=== PATIENT | male | born 1950 | race Caucasian/White ===

== ENCOUNTER 2024-01-07 07:58 | Inpatient (IN) | payer OTHER ==
[~2024-01-07] VITALS: Ht 177.8 cm; Wt 102.0 kg
[2024-01-07] VITALS (19 sets, daily range): BP systolic 106–139; BP diastolic 56–84; PULSE 58–107; RESP 12–19; TEMP 98; O2SAT 96–100
--- NOTE | 2024-01-07 08:07 | ECG ---
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
--- NOTE | 2024-01-07 08:19 | ED.PDOC ---
HPI Comments 73y M who presents the ED for chief complaint of chest pain. Pt states he has been having chest pain for the past x 30 minutes. Pt states the pain is sharp in nature, constant, non-radiating, rating the pain 6/10, with no associated exacerbating or relieving factors. Pt has no associated symptoms but denies diaphoresis, palpitations, nausea, vomiting, headache, dizziness, cough, fever, chills, dysuria, or hematuria. Pt has noted history of HTN, HLD and ITP. Pt states he has history of heart event in past. Pt otherwise denies any other symptoms at this time. Chief Complaint: Chest Pain Time Seen by MD: 08:16 Reviewed Notes: Medications, Allergies Allergies: Coded Allergies: Doxycycline (Verified Allergy, Unknown, 01/07/24) Metformin (Verified Allergy, Unknown, 01/07/24) Pioglitazone (Verified Allergy, Unknown, 01/07/24) Uncoded Allergies: blood thinners (Allergy, Unknown, 01/07/24) Information Source: Patient Mode of Arrival: Ambulatory Brought in by: self Past Medical History PAST MEDICAL HISTORY: High Lipids, HTN Surgical History: Denies all surgeries Family History Family History: Reviewed,noncontributory to illness Social History Smoker: Non-Smoker Alcohol: Denies ETOH Use Drugs: Denies Drug Use Lives In: Home Constitutional: denies: chills, diaphoresis, fatigue, fever, malaise, sweats, weakness, others EENTM: denies: blurred vision, double vision, ear bleeding, ear discharge, ear drainage, ear pain, ear ringing, eye pain, eye redness, hearing loss, mouth pain, mouth swelling, nasal discharge, nose bleeding, nose congestion, nose pain, photophobia, tearing, throat pain, throat swelling, voice changes, others Respiratory: denies: cough, hemoptysis, orthopnea, SOB at rest, shortness of breath, SOB with excertion, stridor, wheezing, others Cardiovascular: reports: chest pain; denies: dizzy spells, diaphoresis, Dyspnea on exertion, edema, irregular heart beat, left arm pain, lightheadedness, palpitations, PND, syncope, others Gastrointestinal: denies: abdomen distended, abdominal pain, blood streaked bowels, constipated, diarrhea, dysphagia, difficulty swallowing, hematemesis, melena, nausea, poor appetite, poor fluid intake, rectal bleeding, rectal pain, vomiting, others Genitourinary: denies: burning, dysuria, flank pain, frequency, hematuria, incontinence, penile discharge, penile sore, pain, testicle pain, testicle swelling, urgency, others Neurological: denies: dizziness, fainting, headache, left sided numbness, left sided weakness, numbness, paresthesia, pre-existing deficit, right sided numbness, right sided weakness, seizure, speech problems, tingling, tremors, weakness, others Musculoskeletal: denies: back pain, gout, joint pain, joint swelling, muscle pain, muscle stiffness, neck pain, others Integumetry: denies: bruises, change in color, change in hair/nails, dryness, laceration, lesions, lumps, rash, wounds, others Allergic/Immunocompromised: denies: Difficulty Healing, Frequent Infections, Hives, Itching, others Hematologic/Lymphatic: denies: anemia, blood clots, easy bleeding, easy bruising, swollen glands, others Endocrine: denies: excessive hunger, excessive sweating, excessive thirst, excessive urination, flushing, intolerance to cold, intolerance to heat, unexplained weight gain, unexplained weight loss, others Psychiatric: denies: anxiety, bipolar disorder, depression, hopeless, panic disorder, schizophrenia, sleepless, suicidal, others All Other Systems: Reviewed and Negative Physical Exam General Appearance: Moderate Distress HEENT: Normal ENT Inspection, Pharynx Normal, TMs Normal Neck: Full Range of Motion, Non-Tender, Normal, Normal Inspection Respiratory: Chest Non-Tender, Lungs Clear, No Accessory Muscle Use, No Respiratory Distress, Normal Breath Sounds Cardiovascular: No Edema, No JVD, No Murmur, No Gallop, Normal Peripheral Pulses, Regular Rate/Rhythm Breast Exam: Deferred Gastrointestinal: No Organomegaly, Non Tender, No Pulsatile Mass, Normal Bowel Sounds, Soft Genitalia: Deferred Pelvic: Deferred Rectal: Deferred Extremities: No calf tenderness, Normal capillary refill, Normal inspection, Normal range of motion, Non-tender, No pedal edema Musculoskeletal : Apperance: Normal Neurologic: Alert, dental resident II-XII nml as Tested, No Motor Deficits, Normal Affect, Normal Mood, No Sensory Deficits Cerebellar Function: NOT DONE Reflexes: NOT DONE Skin: Dry, Normal Color, Warm Peripheral Pulses: 3+ Radial (R), 3+ Radial (L) Lymphatic: No Adenopathy Was a procedure done? Was a procedure done?: No CP Differential Dx Differential Diagnosis: A-fib, A-Flutter, Angina, Anxiety / Panic Attack, Atrial Dysrhythmia, Electrolyte Disorder, Heart Failure, [place], Pulmonary Embolus, PVC's Other Differential Diagnosis acute coronary syndrome Differential Diagnosis: HTN Essential, HTN Encephalopathy, Medical NonCompliance Differential Diagnosis: Chest Wall Pain, Costochondritis X-Ray, Labs, Meds, VS Vital Signs Date Time Temp Pulse Resp B/P (MAP) Pulse Ox O2 Delivery O2 Flow Rate FiO2 01/07/24 08:26 88 16 160/85 (110) 100 01/07/24 08:26 88 16 160/85 01/07/24 08:06 70 Lab Test 01/07/24 08:10 Range/Units White Blood Count Pending Red Blood Count Pending Hemoglobin Pending Hematocrit Pending Mean Corpuscular Volume Pending Mean Corpuscular Hemoglobin Pending Mean Corpuscular Hemoglobin Concent Pending Red Cell Distribution Width Pending Platelet Count Pending Mean Platelet Volume Pending Neutrophils (%) (Auto) Pending Lymphocytes (%) (Auto) Pending Monocytes (%) (Auto) Pending Basophils (%) (Auto) Pending Neutrophils # (Auto) Pending Lymphocytes # (Auto) Pending Monocytes # (Auto) Pending Sodium Level Pending Potassium Level Pending Chloride Level Pending Carbon Dioxide Level Pending Anion Gap Pending Blood Urea Nitrogen Pending Creatinine Pending Glomerular Filtration Rate Calc Pending BUN/Creatinine Ratio Pending Serum Glucose Pending Calcium Level Pending Total Bilirubin Pending Aspartate Amino Transferase (AST) Pending Alanine Aminotransferase (ALT) Pending Alkaline Phosphatase Pending Troponin I High Sensitivity Pending Total Protein Pending Albumin Pending Current Medications Medications (Trade) Dose Ordered Sig/Sandeep Route Start Time Stop Time Status Last Admin Morphine Sulfate 2 mg ONCE ONCE IV 01/07/24 08:15 01/07/24 08:17 DC 01/07/24 08:26 Ondansetron HCl (Zofran) 4 mg ONCE ONCE IV 01/07/24 08:15 01/07/24 08:17 DC 01/07/24 08:23 Patient alert. Complaining of chest pain. Radiating to the back. Vitals stable. Answering all questions. Has risk factors for coronary artery disease. Allergic to aspirin. EKG does show STEMI. Activated the cath team. Was given morphine. Was given Zofran. Blood pressure slightly elevated. Blood pressure will be followed by cardiology. Patient comfortable. Reviewed his previous history. Explained to the patient treatment plan. Continue cardiac monitoring. Time of 1ST Reevaluation: 08:45 Reevaluation 1ST: Unchanged Patient Education/Counseling: Diagnosis, Treatment Family Education/Counseling: No Family Present Departure 1 Departure Time of Disposition: 08:33 Impression: Primary Impression: STEMI (ST elevation myocardial infarction) Qualified Codes: I21.3 - ST elevation (STEMI) myocardial infarction of unspecified site Additional Impression: Hypertensive urgency Disposition: ADMITTED INPATIENT Admit to: Med Surg Condition: Guarded Critical Care Note Critical Care Time?: Yes (45 min-critical care time only) Stability Stability form required: No Heart Score Heart Score: Heart Score Response (Comments) Value History Highly Suspicious [address]-Deviation 2 Age >65 2 Risk Factors 1 or 2 risk factors 1 Troponin N/A 0 Total 7 I personally scribed for CHARMAINE RODRIGUEZ MD ([email or web address]) on 01/07/24 at 08:19. Electronically submitted by Ingrid Jamison ([email or web address]). CHARMAINE RODRIGUEZ MD Jan 07, 2024 08:19
[2024-01-07] MEDS: NITROGLYCERIN 0.4 MG SL TAB SL ONE (08:22)
[2024-01-07] MEDS: ONDANSETRON HCL 4 MG/2 ML VIAL IV ONE (08:23)
[2024-01-07] MEDS: MORPHINE SULFATE INJ 2 MG/ml SYRG IV ONE (08:26)
[2024-01-07 08:31] LABS: Basophils # (auto) 0 10 ^3/uL (0-0.2); Basophils % (auto) 0.3 % (0.0-2.0); Eosinophils # (auto) 0.2 10 ^3/uL (0-0.8); Eosinophils % (auto) 1.6 % (0.0-7.0); Hematocrit 45.6 % (41.0-53.0); Hemoglobin 15.2 g/dL (13.5-17.5); Lymphocytes # (auto) 4.3 10 ^3/uL (0.4-5.4); Mean Corpuscular Hemoglobin 29.7 pg (28.0-32.0); Mean Corpuscular Hgb Conc. 33.2 g/dL (32.0-36.0); Mean Corpuscular Volume 89.4 fL (80.0-100.0); Monocytes # (auto) 1.2 10 ^3/uL (0-1.3); Monocytes % (auto) 9.1 % (0.0-12.0); Neutrophils # (auto) 7.3 10 ^3/uL (1.6-8.6); Platelet Count (auto) 330 10^3/uL (140-450); Red Cell Distribution Width 15.1 % (11.8-14.3)
--- NOTE | 2024-01-07 08:33 | DVHINCON2 ---
Date Seen: Jan 07, 2024 Referring Physician MD Mary Reason for Consultation STEMI History of Present Illness This is a pleasant 73-year-old man who presented to the emergency room with a chief complaint of chest pain for 40 minutes prior to arrival. Describes his chest pain as left-sided, nonradiating, pressure-like, and constant which prompted him to seek further medical evaluation. He underwent a 12 lead elec trocardiogram revealing an inferior wall myocardial infarction with reciprocal changes to lateral leads for which a code STEMI was activated by ED provider with confirmation by refrigeration systems installer evp sales Dr. Trevizo. Reports a history of coronary artery disease undergoing a cardiac catheterization and coronary angiogram without catheter based intervention given small vessel disease not amenable for intervention at [facility] in 2010. The patient also reports a history of idiopathic thrombocytopenia and currently on prednisone therapy with regular follow-ups with Hematology, Dr. Manjit Barba, at [facility]. States he cannot tolerate blood thinners including antiplatelet therapy. Reports receiving Plavix therapy for a possible CVA back in 10/2023 and developing petechia, ocular bleed, and thrombocytopenia which required platelet transfusions x 37 units, immunoglobulin infusion treatment x 11 rounds, and plasmapheresis including a hospital stay > 2 weeks at [facility]. Other medical history includes hypertension, dyslipidemia, and obesity. Past Medical History Past medical history reviewed. No other significant than mentioned above. Past Surgical History Tonsillectomy, 1958 Appendectomy, 1972 Splenectomy, 2008 Hernia repair with mesh, 2012 Left hip replacement, 2013 Right hip replacement, 2018 Family History Family history reviewed. Social History Denies the use of illicit drugs, alcohol, or tobacco use. Allergies: Coded Allergies: Doxycycline (Verified Allergy, Unknown, 01/07/24) Metformin (Verified Allergy, Unknown, 01/07/24) Pioglitazone (Verified Allergy, Unknown, 01/07/24) Uncoded Allergies: blood thinners (Allergy, Unknown, 01/07/24) Home Meds Home medications reviewed. Review of Systems Constitutional: No symptom reported Ears, Nose, & Throat: No symptom reported Eyes: No symptom reported Neurological: No symptoms reported Pulmonary/Respiratory: No symptom reported Cardiovascular: Chest pain Gastrointestinal: No symptom reported Genitourinary: No symptom reported Musculoskeletal: No symptom reported Skin: No symptom reported Psychiatric: No symptom reported Endocrine: No symptom reported Hemotologic/Lymphatic: No symptom reported Vital Signs Vital Signs Date Time Temp Pulse Resp B/P (MAP) Pulse Ox O2 Delivery O2 Flow Rate FiO2 01/07/24 08:26 88 16 160/85 (110) 100 Physical Exam General Appearance: Cooperative. Well developed. Obese. In no acute distress Head Exam: Normal inspection Neck Exam: Normal inspection. Non-tender. Normal alignment Pulmonary/Respiratory: Chest non-tender. Clear bilateral breath sounds Cardiovascular/Chest: Regular rate and rhythm. S1, S2. Inferior wall STEMI with reciprocal lateral changes. No murmurs. No JVD. Peripheral Pulses: 2+ Radial (R). 2+ Radial (L). 2+ Pedal (R). 2+ Pedal (L) Abdominal Exam: Normal bowel sounds. Soft. Nontender. No hepatospenomegaly. No masses Ankle Exam: Negative ankle edema Lower extremities: Negative lower extremity edema Neuro/Mental Status: A&O x4. Coherent Thoughts/Psych: Normal thought pattern. Appropriate mood and affect. Good judgement and insight Appearance: In no acute distress Skin Exam: Normal inspection. Normal color. Warm. Dry Labs/Diagnostic Data Labs Test 01/07/24 08:10 Range/Units White Blood Count 13.0 H 4.4-10.8 10^3/uL Red Blood Count 5.10 4.5-5.90 10^6/uL Hemoglobin 15.2 13.5-17.5 g/dL Hematocrit 45.6 41.0-53.0 % Mean Corpuscular Volume 89.4 80.0-100.0 fL Mean Corpuscular Hemoglobin 29.7 28.0-32.0 pg Mean Corpuscular Hemoglobin Concent 33.2 32.0-36.0 g/dL Red Cell Distribution Width 15.1 H 11.8-14.3 % Platelet Count 330 140-450 10^3/uL Mean Platelet Volume 8.2 6.9-10.8 fL Neutrophils (%) (Auto) 56.0 37.0-80.0 % Lymphocytes (%) (Auto) 33.0 10.0-50.0 % Monocytes (%) (Auto) 9.1 0.0-12.0 % Eosinophils (%) (Auto) 1.6 0.0-7.0 % Basophils (%) (Auto) 0.3 0.0-2.0 % Neutrophils # (Auto) 7.3 1.6-8.6 10 ^3/uL Lymphocytes # (Auto) 4.3 0.4-5.4 10 ^3/uL Monocytes # (Auto) 1.2 0-1.3 10 ^3/uL Eosinophils # (Auto) 0.2 0-0.8 10 ^3/uL Basophils # (Auto) 0 0-0.2 10 ^3/uL Nucleated Red Blood Cells 0.0 % Assessment Acute inferior wall ST-elevation myocardial infarction Coronary artery disease with small-vessel disease Idiopathic thrombocytopenia Hx of splenectomy Hypertension Dyslipidemia Obesity Plan/Recommendation (Dr. Trevizo) Scheduled for urgent cardiac catheterization and coronary angiogram at first available. All risks and benefits of the procedure were discussed with the patient and at bedside who agree to proceed with intervention. All questions answered. Dr. Trevizo aware of patient's medical history including ITP and previous complications from Plavix therapy. Cardiology team communicated with in house Finish Rolls Operator, Dr. Vázquez, who would like to obtain records from [facility]. Thank you for allowing us to participate in this patient's care. Please call if you have any questions or concerns. Critical care time: 45 min. This medical document was created using an electronic medical record system with voice recognition software and computerized dictation system. Although this document has been carefully rev iewed, there might still be some phonetic and typographical errors. Occasional wrong-word or ``sound-alike substitutions may have occurred due to the inherent limitations of voice recognition software. These areas are purely typographical due to imperfections of the software programs and do not reflect any compromise in the patient's medical care. Please read the chart carefully and recognize, using context, where these substitutions have occurred. Plan discussed with: Patient, Spouse, Other Date of Service: Jan 07, 2024 Billing Provider: LAIAL TREVIZO MD Cardiology Common Codes: 48903-JBPNTMEJ CARE 30-74 MIN SILVESTRE RODRIGEZ [facility] Jan 07, 2024 08:33
--- NOTE | 2024-01-07 08:44 | DVH ---
CHEST RADIOGRAPH Indication:CHEST PAIN Technique: Single frontal view of the chest was obtained Comparison: None FINDINGS: Lines and Tubes: None Lungs: No focal consolidation. Pleura: No effusion.No pneumothorax. Cardiomediastinal contours: Unremarkable Bones: No acute osseous abnormality. IMPRESSION: 1. No acute cardiopulmonary disease. HS:Y
[2024-01-07 08:58] LABS: Alanine Aminotransferase 32 U/L (7-40); Albumin 4.5 g/dL (3.2-4.8); Alkaline Phosphatase 99 U/L (46-116); Anion Gap 9 (5-15); Aspartate Aminotransferase 25 U/L (13-40); Blood Urea Nitrogen 12 mg/dL (9-23); Calcium 9.7 mg/dL (8.7-10.4); Carbon Dioxide 24 mmol/L (20-31); Chloride 106 mmol/L (98-107); Glucose 210 mg/dL (74-106); Potassium 3.5 mmol/L (3.5-5.1); Sodium 139 mmol/L (136-145)
[2024-01-07 08:59] LABS: Bilirubin, Total 1.2 mg/dL (0.2-1.0); Total Protein 6.5 g/dL (5.7-8.2)
--- NOTE | 2024-01-07 09:04 | DVHINCON2 ---
Date of service: Jan 07, 2024 Referring Physician Charlee Yu NP Reason for Consultation Frequent episodes of ITP over the last 18 years History of Present Illness 73 years old gentleman whose is by his bedside. The patient has a history of recurrent ITP since 2005 and has been treated with heavy doses of steroids IVIG and Nplate. And he had splenectomy in around 2008. Last time he had a severe attack of refractory thrombocytopenia was in September 2022 after taking the Plavix/blood thinners at [facility]. He needed heavy doses of steroids IVIG and Nplate. The tells me that his urban planning professor emphasize to at [place] that they should not take any blood thinners in any situation (those records are being requested from [place]). There was some concern about ocular bleeding which turned out to be a ocular migraine at that time Now the patient is admitted with chest pains and concern about NSTEMI and the patient is going for angiogram and I am consulted to evaluate him for the possibility of blood thinners At present the patient's CBC is normal with a white count of 13 hemoglobin 15.2 platelets [id number]. Patient is not a bleeder or bruising. The is very deeply convinced and concern that she does not want him to have any blood thinners Past Medical History Refractory ITP since 2005. He has had 11 episodes of ITP needing multiple medications and with significant bleedings off and on. Splenectomy Hypertension High cholesterol History of shingles which affected his eyes also History of hernia repair Family History Unremarkable for malignancy or hematological disorders Social History No smoking drinking. Patient is Allergies: Coded Allergies: Doxycycline (Verified Allergy, Unknown, 01/07/24) Metformin (Verified Allergy, Unknown, 01/07/24) Pioglitazone (Verified Allergy, Unknown, 01/07/24) Uncoded Allergies: blood thinners (Allergy, Unknown, 01/07/24) Vital Signs Vital Signs Date Time Temp Pulse Resp B/P (MAP) Pulse Ox O2 Delivery O2 Flow Rate FiO2 01/07/24 08:26 88 16 160/85 (110) 100 01/07/24 08:20 Nasal Cannula* 2 28 01/07/24 08:05 98.1 Physical Exam Moderately built and nourished, in no acute distress, alert and oriented. No jaundice Head and neck: Unremarkable for any masses or neck nodes. No conjunctival or mucosal hemorrhage Lungs: Clear Cardiovascular: S1-S2 heard well Abdomen: No organomegaly, tenderness or ascites. Bowel sounds are present. Extremities: No clubbing edema cyanosis or calf tenderness. Skin: Unremarkable for petechia purpura ecchymosis Lymphadenopathy: None Neurological exam: No focal deficit Labs/Diagnostic Data Labs Test 01/07/24 08:10 Range/Units White Blood Count 13.0 H 4.4-10.8 10^3/uL Red Blood Count 5.10 4.5-5.90 10^6/uL Hemoglobin 15.2 13.5-17.5 g/dL Hematocrit 45.6 41.0-53.0 % Mean Corpuscular Volume 89.4 80.0-100.0 fL Mean Corpuscular Hemoglobin 29.7 28.0-32.0 pg Mean Corpuscular Hemoglobin Concent 33.2 32.0-36.0 g/dL Red Cell Distribution Width 15.1 H 11.8-14.3 % Platelet Count 330 140-450 10^3/uL Mean Platelet Volume 8.2 6.9-10.8 fL Neutrophils (%) (Auto) 56.0 37.0-80.0 % Lymphocytes (%) (Auto) 33.0 10.0-50.0 % Monocytes (%) (Auto) 9.1 0.0-12.0 % Eosinophils (%) (Auto) 1.6 0.0-7.0 % Basophils (%) (Auto) 0.3 0.0-2.0 % Neutrophils # (Auto) 7.3 1.6-8.6 10 ^3/uL Lymphocytes # (Auto) 4.3 0.4-5.4 10 ^3/uL Monocytes # (Auto) 1.2 0-1.3 10 ^3/uL Eosinophils # (Auto) 0.2 0-0.8 10 ^3/uL Basophils # (Auto) 0 0-0.2 10 ^3/uL Nucleated Red Blood Cells 0.0 % Assessment 1. History of refractory ITP is 11 times over the last 18 years and has not needed heavy doses of steroids IVIG and endplates and had splenectomy. Last time he took a blood thinner/Plavix was in September 2022 and developed severe thrombocytopenia and the patient's tells me that his urban planning professor emphasize very strongly that he should not take any blood thinners 2. NSTEMI possible coronary artery disease 3. Hypertension 4. High cholesterol 5. History of shingles which affected the eyes Plan/Recommendation Records from [facility] requested In the meantime as the patient has had significant problems with Plavix/blood thinners and emphasize by his urban planning professor not to take any blood thinners I will suggest not giving any blood thinners Plan discussed with: Spouse RED PRINCE MD Jan 07, 2024 09:04
[2024-01-07] MEDS: SODIUM CHL 0.9% 50 ML ONE ×2 (09:21→10:28)
[2024-01-07] MEDS: HEPARIN SODIUM (PORCINE) 5000 UNITS/ML 1ML VIAL ONE (09:21)
[2024-01-07] MEDS: ANGIOMAX 250 MG VIAL IV ONE ×2 (09:21→10:29)
[2024-01-07] MEDS: fentaNYL CITRATE 100 MCG/2 ML VL ONE (09:21)
[2024-01-07] MEDS: MIDAZOLAM HCL 2MG/2ML 2ml VIAL (1mg/ml) ONE (09:21)
[2024-01-07] MEDS: VERAPAMIL 2.5MG/ML INJ 2ML VIAL IV ONE (09:21)
[2024-01-07] MEDS ORDERED: MORPHINE SULFATE INJ 2 MG/ml SYRG ONE (09:23)
[2024-01-07 09:33] LABS: Magnesium 2.2 mg/dL (1.6-2.6)
[2024-01-07 09:44] LABS: INR 1.03 (0.9-1.15); Partial Thromboplastin Time 27.6 SEC (24.5-34.5); Prothrombin Time 10.9 sec (9.3-11.8)
[2024-01-07] MEDS: ATROPINE SULF 1 MG/10ml SYR ONE (09:53)
[2024-01-07] MEDS: EPINEPHrine HCL 1 MG/10 ML SYRG ONE (09:53)
[2024-01-07] MEDS: TICAGRELOR 90 MG TAB ONE (10:29)
[2024-01-07] MEDS ORDERED: MORPHINE SULFATE INJ 2 MG/ml SYRG IV PRN (11:00)
[2024-01-07] MEDS ORDERED: NITROGLYCERIN 0.4 MG SL TAB SL PRN (11:00)
[2024-01-07] MEDS: ONDANSETRON HCL 4 MG/2 ML VIAL IV PRN (12:23)
--- NOTE | 2024-01-07 13:05 | DVHOP ---
DATE OF SURGERY: 01/07/2024 The patient who has history of coronary artery disease now brought in with acute OH. The patient underwent: * Left and right heart catheterization. * Ventriculogram. * Angioplasty with thrombectomy with Shockwave balloon of the left anterior descending artery with stent placement 3 mm x 15 mm [place] stent in the mid left anterior descending artery. * Angioplasty with shockwave treatment of the circumflex artery with thrombectomy of the proximal circumflex and placement of stent 3.5 x 34 mm [place] stent. * Angioplasty of the mid RCA, is a small nondominant vessel with rotational atherectomy, shockwave thrombectomy as well as balloon angioplasty. No stent was deployed. * Total contrast used was 290 mL of Optiray during the course of intervention of all three arteries. Conscious sedation was also given. DESCRIPTION OF PROCEDURE: The patient was prepped and draped under sterile condition. Xylocaine 1% used to anesthetize the right groin. Using a Cook needle, right femoral artery was engaged with Seldinger technique, a 6-[place] sheath into the right femoral artery. Using 6-[place] JL4 catheter and 6-[place] JR4 catheter, selective left and right coronary angiographies were performed. Then, the 6-[place] diagnostic system was exchanged for a 6-[place] interventional system. Using 6-[place] XB 3.5 guide catheter, the left main was cannulated. Using a ChoICE PT extra support wire, the circumflex lesion was then crossed. It was then thrombectomized with a Shockwave balloon. Following that, a 3.5 x 34 mm [place] stent was deployed across the proximal circumflex at 16 atmospheres with no residual stenosis or complication. Left anterior descending artery had a 90% mid LAD status post thrombectomy and shock wave treatment of the mid LAD followed by balloon angioplasty with a 3.0 x 15 mm [place] balloon, then a 3.0 x 15 mm [place] stent was deployed across the mid LAD. There were no complications. Right coronary artery had a subtotal narrowing of mid nondominant RCA, it is a less than 2.5 mm vessel. Multiple attempts with multiple wires were used to cross the lesion including Runthrough, ChoICE PT extra support wire as well as ViperWire and chronic occlusion wire which was the [place] total occlusion wire was used and all wires were successful in crossing one at a time but the atherectomy device 1.5 mm did not cross, 1 mm balloon did not cross, 1.5 mm balloon did not cross. The patient had a 2 mm, did not cross even though we angioplastied the proximal segment to the stenosis. The atherectomy device also did not cross and the shockwave balloon also did not cross. At this time, it was chronic occlusion with recanalization. It is a nondominant vessel and to not further intervene because of risk of perforation. We will continue to follow the patient. RESULTS: * Left main patent. * Left anterior descending artery had a mid 80%-90% narrowing, status post thrombectomy with balloon angioplasty and shock wave treatment and stent placement 3.0 x 15 mm stent with less than 10% residual stenosis. * Circumflex artery with a very active lesion with type C lesion, open plaques with thrombus formation, status post angioplasty with thrombectomy and stent placement 3.5 x 34 mm [place] stent with less than 10% residual stenosis. * Right coronary artery had chronic occlusion with recanalization, nondominant vessel, less than 2 mm in size. Various modalities and various wires were used as above, but we were not able to recanalize the artery. Previous admission in [place] in 2010, the patient had similar episode when he came to the right coronary artery. Eventually, the patient was to be treated medically. Thus, the patient with complete revascularization of the LAD and the circumflex territory. The patient will need to be on dual-antiplatelet therapy. We will put him on Brilinta 90 mg b.i.d. since history of ITP with Plavix. We will continue to follow the patient. Bakari Sanchez MD SA/MITZI/KINSEY TID: [id number] RECEIPT: [id number]
[2024-01-07] MEDS ORDERED: ONDANSETRON HCL 4 MG/2 ML VIAL ONE (13:23)
[2024-01-07] MEDS ORDERED: hydrALAZINE HCL 20 MG/ML VL IV PRN (17:30)
[2024-01-07] MEDS ORDERED: DEXTROSE (50%) 50ML SYRG IV PRN (17:30)
[2024-01-07] MEDS ORDERED: PRE5T PO (17:40)
[2024-01-07] MEDS ORDERED: ATOR40TA52 PO (17:40)
[2024-01-07] MEDS ORDERED: LOS25T PO (17:40)
[2024-01-07] MEDS ORDERED: PRED20TA2 PO (17:40)
[2024-01-07] MEDS: TICAGRELOR 90 MG TAB PO SCH (21:49)
[2024-01-07] MEDS: ACCU-CHEK COMFORT CURVE STRIP VI SCH (21:49)
[2024-01-07] MEDS: ATORVASTATIN 20 MG TAB PO SCH (21:49)
[2024-01-07] MEDS: InsuLIN REG 1unit/0.01ml Soln (100units/ml) SC SCH (22:01)
--- NOTE | 2024-01-07 22:34 | DVHHP ---
ADMIT DATE: 01/07/2024 HISTORY OF PRESENT ILLNESS: The patient is a 73-year-old who was brought in through the Emergency Room with acute chest pain. EKG shows inferior wall LA with ST elevation of 2 mm in II, III, and aVF. PERTINENT MEDICAL HISTORY: Significant for the patient in 2010 had a similar episode, was taken to the Emergency Room. 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 Multiple attempts were made to do angioplasty of the vessel and they were not successful and the patient was symptomatically treated but now he has significant elevation in ST. Therefore, it is felt that the patient should undergo angiography. STEMI protocol was to be initiated but it was not because the patient has diagnosis of ITP even though his platelet levels were normal. No heparin was given in the Emergency Room. No aspirin was given in the Emergency Room. The patient was just transferred to the cardiac cath lab radiology technologist without therapy initiated. FAMILY HISTORY: Negative. SOCIAL HISTORY: Negative. REVIEW OF SYSTEMS: Denies any seizure disorder. No history of CVA in the past. No bleeding diathesis except for ITP, but usually ITP there is no bleeding associated with it but his platelet count currently is within normal limits as well. His Plavix was discontinued because of the symptoms of ITP. Because of that, we will not introduce Plavix. We will give him Brilinta instead if he needs any antiplatelet therapy. PHYSICAL EXAMINATION: VITAL SIGNS: Blood pressure is 140/82, pulse of 60 and regular, O2 saturation 98%. HEENT: Pupils are reactive. Funduscopic exam is benign. Sclerae anicteric. Extraocular muscles were intact. No JVD appreciated. Carotid pulses were 2+ symmetrical. Normal upstroke and contour. PULMONARY: Clear to auscultation. CARDIOVASCULAR: Regular rate although bradycardic. ABDOMEN: Obese. Unable to appreciate organomegaly. EXTREMITIES: 1+ pulses bilaterally. NEUROLOGICAL: The patient is intact. ASSESSMENT AND PLAN: Thus, the patient with acute inferior wall LA. Now to undergo coronary angiography to define coronary anatomy. The ST elevation was II greater than III. Therefore, the culprit lesion is more than likely is the circumflex artery rather than the RCA since RCA is reported to be a nondominant vessel less than 2 mm in size. Further recommendations after the angiogram. Bakari Sanchez MD SA/MITZI/KINSEY TID: [id number] RECEIPT: [id number]
[2024-01-08] VITALS (9 sets, daily range): BP systolic 102–143; BP diastolic 56–84; PULSE 62–88; RESP 16–19; TEMP 98–99.6; O2SAT 94–98
[2024-01-08] MEDS: ONDANSETRON HCL 4 MG/2 ML VIAL IV PRN (01:04)
[2024-01-08] MEDS: InsuLIN REG 1unit/0.01ml Soln (100units/ml) SC SCH (05:30)
[2024-01-08 05:45] LABS: Basophils # (auto) 0 10 ^3/uL (0-0.2); Basophils % (auto) 0.1 % (0.0-2.0); Eosinophils # (auto) 0 10 ^3/uL (0-0.8); Hematocrit 42.6 % (41.0-53.0); Hemoglobin 14.4 g/dL (13.5-17.5); Lymphocytes # (auto) 2.1 10 ^3/uL (0.4-5.4); Lymphocytes % (auto) 12.7 % (10.0-50.0); Mean Corpuscular Hemoglobin 30.3 pg (28.0-32.0); Mean Corpuscular Hgb Conc. 33.9 g/dL (32.0-36.0); Mean Corpuscular Volume 89.4 fL (80.0-100.0); Monocytes # (auto) 1.3 10 ^3/uL (0-1.3); Monocytes % (auto) 7.8 % (0.0-12.0); Neutrophils # (auto) 12.9 10 ^3/uL (1.6-8.6); Neutrophils % (auto) 79.4 % (37.0-80.0); Platelet Count (auto) 317 10^3/uL (140-450); Red Blood Cells 4.76 10^6/uL (4.5-5.90); Red Cell Distribution Width 15.2 % (11.8-14.3); White Blood Cell 16.2 10^3/uL (4.4-10.8)
[2024-01-08 06:36] LABS: Urine Bacteria None Seen /hpf (None Seen)
[2024-01-08 06:54] LABS: Urine Blood Negative /uL (Negative); Urine Clarity Clear (Clear); Urine Color Yellow (Yellow); Urine Mucus FEW (None Seen); Urine Protein, UAD 1+ (Negative); Urine Urobilinogen Normal (Negative); Urine WBC 1 /hpf (0 - 3)
[2024-01-08 06:54] LABS: Albumin 4.2 g/dL (3.2-4.8); Alkaline Phosphatase 93 U/L (46-116); Anion Gap 9 (5-15); Aspartate Aminotransferase 241 U/L (13-40); BUN/Creatinine Ratio 14.8 (10.0-20.0); Blood Urea Nitrogen 12 mg/dL (9-23); Calcium 9.5 mg/dL (8.7-10.4); Carbon Dioxide 24 mmol/L (20-31); Chloride 104 mmol/L (98-107); Glucose 243 mg/dL (74-106); Potassium 3.7 mmol/L (3.5-5.1); Sodium 137 mmol/L (136-145)
[2024-01-08 06:55] LABS: Bilirubin, Total 1.4 mg/dL (0.2-1.0); Total Protein 6.1 g/dL (5.7-8.2)
[2024-01-08 07:05] LABS: Alanine Aminotransferase 43 U/L (7-40)
[2024-01-08 07:19] LABS: Urine Specific Gravity > 1.050 (1.001-1.035)
[2024-01-08] MEDS: METOPROLOL SUCCINATE XL 50 MG TAB PO SCH (10:00)
--- NOTE | 2024-01-08 10:06 | ECG ---
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
--- NOTE | 2024-01-08 14:13 | DVHPN2 ---
Progress Note - Dictate Date Seen: Jan 08, 2024 Medical Necessity Reason Pt with a Central, PICC or Fol: No Subjective PT WITH STEMI S/P PTCA STENT LAD S/P PTCA STENT CX The patient is a 73-year-old who was brought in through the Emergency Room with acute chest pain. EKG shows inferior wall MT with ST elevation of 2 mm in II, III, and aVF. PERTINENT MEDICAL HISTORY: Significant for the patient in 2010 had a similar episode, was taken to the Emergency Room. 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 Multiple attempts were made to do angioplasty of the vessel and they were not successful and the patient was symptomatically treated but now he has significant elevation in ST. Therefore, it is felt that the patient should undergo angiography. STEMI protocol was to be initiated but it was not because the patient has diagnosis of ITP even though his platelet levels were normal. No heparin was given in the Emergency Room. No aspirin was given in the Emergency Room. The patient was just transferred to the cleaner laboratory equipment without therapy initiated. FAMILY HISTORY: Negative. SOCIAL HISTORY: Negative. REVIEW OF SYSTEMS: Denies any seizure disorder. No history of CVA in the past. No bleeding diathesis except for ITP, but usually ITP there is no bleeding associated with it but his platelet count currently is within normal limits as well. His Plavix was discontinued because of the symptoms of ITP. Because of that, we will not introduce Plavix. We will give him Brilinta instead if he needs any antiplatelet therapy. vital signs Vital Sign Date Time Temp Pulse Resp B/P (MAP) Pulse Ox O2 Delivery O2 Flow Rate FiO2 01/08/24 13:08 98.0 62 19 131/75 (93) 96 98.0 01/08/24 08:00 Room Air* 0 21 Total Intake and Output 01/07/24 01/07/24 01/08/24 15:00 23:00 07:00 Intake Total 120 ml 600 ml Output Total 400 ml Balance 120 ml 200 ml medications Current Medications Medications Dose Ordered Sig/Sandeep Route Start Time Stop Time Status Last Admin Dose Admin Nitroglycerin 0.4 mg Q5MINP PRN SL 01/07/24 11:00 Morphine Sulfate 2 mg Q30M PRN IV 01/07/24 11:00 Ticagrelor 90 mg BID PO 01/07/24 22:00 01/07/24 21:49 90 MG Atorvastatin Calcium 40 mg HS PO 01/07/24 22:00 01/07/24 21:49 40 MG Metoprolol Succinate 25 mg DAILY PO 01/08/24 10:00 Diagnostic Test (Pha) 1 strip ACHS 01/07/24 22:00 01/08/24 11:55 1 STRIP Insulin Human Regular HS SC 01/07/24 22:00 01/07/24 22:01 4 UNITS Insulin Human Regular AC SC 01/08/24 07:00 01/08/24 05:30 6 UNITS Dextrose 50 ml UD PRN IV 01/07/24 17:30 Hydralazine HCl 10 mg Q6HP PRN IV 01/07/24 17:30 Ondansetron HCl 4 mg Q4HPRN PRN IV 01/07/24 23:15 01/08/24 05:18 4 MG objective PHYSICAL EXAMINATION: VITAL SIGNS: Blood pressure is 140/82, pulse of 60 and regular, O2 saturation 98%. HEENT: Pupils are reactive. Funduscopic exam is benign. Sclerae anicteric. Extraocular muscles were intact. No JVD appreciated. Carotid pulses were 2+ symmetrical. Normal upstroke and contour. PULMONARY: Clear to auscultation. CARDIOVASCULAR: Regular rate although bradycardic. ABDOMEN: Obese. Unable to appreciate organomegaly. EXTREMITIES: 1+ pulses bilaterally. NEUROLOGICAL: The patient is intact. laboratory and microbiology Laboratory Tests 01/08/24 04:45 Test 01/08/24 04:45 Range/Units Serum Glucose 243 H 74-106 mg/dL Problem List STEMI S/P PTCA STENT LAD S/P PTCA STENT CX HTN HYPERLIPIDEMIA Assessment/Plan HX IF ITP NOW STABLE BRILINTA ASA LIPITOR BETA ISHAAN ACEI Plan discussed with: Patient Critical Care Time(min): 35 TYRONE CONRAD MD Jan 08, 2024 14:13
--- NOTE | 2024-01-08 15:46 | DVHSR ---
APPROVED REPORT EXAM: Two-dimensional and M-mode echocardiogram with Doppler and color Doppler. Blood Pressure: 140/78 mmHg INDICATION EF RISK FACTORS Height: 5'10", Weight: 224 DIMENSIONS LVDd4.7 (3.8-5.7cm)LA (2D)4.6 (1.9-4.0cm)Aortic Root (2.0-3.7cm) LVDs3.1 (2.5-4.0cm)LA (MM) (1.9-4.0cm)Aortic Cusp Exc0.3 (1.5-2.0cm) EF (%) 62.0 (55-70%)Rt. Atrium (1.9-4.0cm)Asc. Aorta3.8 cm IVSd0.9 (0.7-1.1cm)RV (D) (1.8-2.4cm) PWd0.9 (0.7-1.1cm) Mitral Valve MitralMitral Stenosis E/A ratio0.02D MVAcm2 Aortic Valve Aortic ValveAortic Stenosis V10.86m/Joann Mean GR.13mmHg V22.38m/Joann Peak GR.23mmHg LVOT Diameter2.3 (1.8-2.4cm)Doppler AVA1.50cm2 Pulmonic Valve V20.92m/s Tricuspid Valve TR Velocity2.48m/s [id number] Other Information Quality : Technically LimitedRhythm : Technically limited study due to body habitus and patient position. Conclusion Normal left ventricular size and dimension. Normal left ventricular systolic function estimated ejec tion fraction 55%. There is a grade 1 diastolic dysfunction. Normal right ventricular size and dimension. Normal right ventricular systolic function. Normal biatrial size and dimension. The aortic valve is thickened severely calcific there is [id number] aortic valve stenosis with a peak gradient of23 mean gradient of13 mm of mercury. The mitral valve appears mildly thickened no significant stenosis or regurgitation. There is mild tricuspid valve regurgitation. The pulmonary valve is grossly normal. No pericardial effusion.
[2024-01-08] MEDS: METOCLOPRAMIDE HCL 5MG/ml INJ 2ml VIAL IV SCH (17:00)
[2024-01-09] VITALS (9 sets, daily range): BP systolic 137–146; BP diastolic 77–91; PULSE 63–78; RESP 16–19; TEMP 97.5–99.2; O2SAT 94–97
[2024-01-09 06:43] LABS: Alanine Aminotransferase 39 U/L (7-40); Albumin 4.5 g/dL (3.2-4.8); Alkaline Phosphatase 94 U/L (46-116); Anion Gap 10 (5-15); Aspartate Aminotransferase 183 U/L (13-40); BUN/Creatinine Ratio 13.8 (10.0-20.0); Bilirubin, Total 2.1 mg/dL (0.2-1.0); Blood Urea Nitrogen 11 mg/dL (9-23); Calcium 9.4 mg/dL (8.7-10.4); Carbon Dioxide 23 mmol/L (20-31); Chloride 102 mmol/L (98-107); Glucose 182 mg/dL (74-106); Potassium 3.5 mmol/L (3.5-5.1); Sodium 135 mmol/L (136-145); Total Protein 6.1 g/dL (5.7-8.2)
[2024-01-09] MEDS: LOSARTAN POTASSIUM 25 MG TAB PO SCH (09:14)
[2024-01-09] MEDS: SPIRONOLACTONE 25 MG TAB PO SCH (10:00)
[2024-01-09] MEDS: MAALOX PLUS or MAALOX 30 ML PO PRN (22:34)
[2024-01-10] VITALS (8 sets, daily range): BP systolic 118–135; BP diastolic 67–86; PULSE 86–93; RESP 16–18; TEMP 98–99.5; O2SAT 93–96
[2024-01-10 04:33] LABS: Chloride 98 mmol/L (98-107); Potassium 3.4 mmol/L (3.5-5.1); Sodium 131 mmol/L (136-145)
[2024-01-10 04:34] LABS: Anion Gap 7 (5-15); Calcium 9.9 mg/dL (8.7-10.4); Carbon Dioxide 26 mmol/L (20-31)
[2024-01-10 04:39] LABS: BUN/Creatinine Ratio 10.3 (10.0-20.0); Blood Urea Nitrogen 8 mg/dL (9-23); Glucose 173 mg/dL (74-106)
== END 2024-01-10 18:26 | disposition home or self-care (01) | DRG 324 ==
LOC: ER 07:58 → TELE 10:59 → TELE-CENTR 15:33
PROVIDERS: ADMIT Internal Medicine Cardiovascular Disease; ATTEND Internal Medicine Cardiovascular Disease
PROC: 027135Z Dilation of Coronary Artery, Two Arteries with Two Drug-eluting Intraluminal Devices, Percutaneous Approach (ICD-10-PCS; principal; 2024-01-07)
PROC: 02F13ZZ Fragmentation in Coronary Artery, Two Arteries, Percutaneous Approach (ICD-10-PCS; 2024-01-07)
PROC: 02C13ZZ Extirpation of Matter from Coronary Artery, Two Arteries, Percutaneous Approach (ICD-10-PCS; 2024-01-07)
PROC: 4A023N7 Measurement of Cardiac Sampling and Pressure, Left Heart, Percutaneous Approach (ICD-10-PCS; 2024-01-07)
PROC: B211YZZ Fluoroscopy of Multiple Coronary Arteries using Other Contrast (ICD-10-PCS; 2024-01-07)
PROC: 02703ZZ Dilation of Coronary Artery, One Artery, Percutaneous Approach (ICD-10-PCS; 2024-01-07)
DX: I21.19 ST elevation (STEMI) myocardial infarction involving other coronary artery of inferior wall (principal); D69.3 Immune thrombocytopenic purpura; I25.10 Atherosclerotic heart disease of native coronary artery without angina pectoris; E66.9 Obesity, unspecified; I16.0 Hypertensive urgency; Z96.643 Presence of artificial hip joint, bilateral; E78.00 Pure hypercholesterolemia, unspecified; Z88.8 Allergy status to other drugs, medicaments and biological substances; Z86.73 Personal history of transient ischemic attack (TIA), and cerebral infarction without residual deficits; Z90.81 Acquired absence of spleen; Z90.49 Acquired absence of other specified parts of digestive tract; Z86.19 Personal history of other infectious and parasitic diseases; Z68.32 Body mass index [BMI] 32.0-32.9, adult
CPT/HCPCS: 36415; 71045; 80048; 80053; 80061; 81001; 82962; 83036; 83735; 83880; 84443; 84484; 85025; 85610; 85730; 86850; 86900; 86901; 92933; 92941; 92972; 93005; 93306; 93458; 96374; 96375; 99152; 99291; C1724; C1769; G0378; J1815; J2250; J2405